=== PATIENT | male | born 1955 | race Caucasian/White ===

== ENCOUNTER → 2017-04-02 | Outpatient (CLI) | payer BC ==
[~2017-04-02] MED LIST: ARTHROTEC 501 TABLET PO; ARTHROTEC 751 TABLET PO; ASACOL400 MG PO; ASPIR 8181 M1 PO; ASPIRIN325 MG PO; ASPIRIN81 M1 PO; AZULFIDINE500 MG PO; Arthrotec 50 PO; Ascorbic Acid,Ester- PO; BENICAR; CARDIZEM CD,CA240 MG PO; CARTIA XT240 MG PO; CENTRUM SILVER1 EAC3 PO; COZAAR50 MG PO; CRESTOR PO; CRESTOR10 MG PO; Cardizem CD,Cartia X PO; Ceftin PO; DILTIAZEM 24HR240 MG PO; DOCUSATE SODIU100 MG PO; Dulcolax PO; ENDOCET 5-3251 EACH PO; FLEXERIL5 MG PO; FLONASE16 G1 BOTH NARES; Feosol PO; IRON325 M1 PO; JALYN 0.5-0.41 EACH PO; LORTAB 5-325 M1 EACH PO; MACROBID100 MG PO; METAXALONE800 MG PO; MOTRIN400 MG PO; MOTRIN600 MG PO; PERCOCET 5/31 TABLET PO; PREDNISONE10 MG PO; ST. JOSEPH ASPI81 MG PO; TRAMADOL HCL200 MG PO; TRAMADOL HCL50 MG PO; TYLENOL REGULA325 MG PO; XARELTO10 MG PO; Xarelto PO; ZANAFLEX4 MG PO
== END | disposition home or self-care (01) ==
LOC: NUC 09:57
DX: M19.072 Primary osteoarthritis, left ankle and foot (principal); M19.071 Primary osteoarthritis, right ankle and foot; R93.7 Abnormal findings on diagnostic imaging of other parts of musculoskeletal system; Z96.653 Presence of artificial knee joint, bilateral
CPT/HCPCS: 78315; A9503

== ENCOUNTER → 2017-09-24 | Outpatient (CLI) | payer BC | END | disposition home or self-care (01) | LOC: CDC 08:49 | DX: Z01.810 Encounter for preprocedural cardiovascular examination (principal); N39.3 Stress incontinence (female) (male); Z90.79 Acquired absence of other genital organ(s); R94.31 Abnormal electrocardiogram [ECG] [EKG] | CPT/HCPCS: 93000 ==

== ENCOUNTER 2017-10-03 05:55 | Day surgery (SDC) | payer BC ==
[~2017-10-03] VITALS: Ht 177.8 cm; Wt 94.3 kg
[~2017-10-03 05:55] MED LIST changes: +LO-DOSE ASPIRIN81 M2 PO; +TYLENOL EXTRA500 MG PO; +VIBRAMYCIN100 MG PO
[2017-10-03] MEDS ORDERED: ULTRAM50 MG PO (06:26)
[2017-10-03 06:29] VITALS: BP 153/82
[2017-10-03 12:28] VITALS: BP 123/71
[2017-10-03 15:43] VITALS: BP 115/61
[2017-10-03 19:10] VITALS: BP 131/69
[2017-10-03 23:20] VITALS: BP 120/58
[2017-10-04 03:32] VITALS: BP 139/73
[2017-10-04 08:20] VITALS: BP 120/73
[2017-10-04] MEDS ORDERED: KEFLEX500 MG PO (11:27)
[2017-10-04] MEDS ORDERED: ENDOCET 5-3251 EACH PO (11:27)
[2017-10-04] MEDS ORDERED: DOCUSATE SODIU100 MG PO (11:27)
[2017-10-04 13:09] VITALS: BP 131/71
== END 2017-10-04 14:44 | disposition home or self-care (01) ==
LOC: SDC → 2SOUTH 09:44 → ENRESERV 09:52 → 2EASTP 12:27 → 2EAST 17:58
PROC: 0THD0LZ Insertion of Artificial Sphincter into Urethra, Open Approach (ICD-10-PCS; principal; 2017-10-03)
DX: N39.3 Stress incontinence (female) (male) (principal); Z90.79 Acquired absence of other genital organ(s); Z85.46 Personal history of malignant neoplasm of prostate; I10 Essential (primary) hypertension; E78.5 Hyperlipidemia, unspecified; G47.30 Sleep apnea, unspecified; Z87.891 Personal history of nicotine dependence; Z79.82 Long term (current) use of aspirin
CPT/HCPCS: C1815; G0378; J0690; J1100; J1580; J1650; J1885; J2250; J2405; J3010; J7050; J7120